=== PATIENT | female | born 1930 | race African-American/Black ===

== ENCOUNTER 2017-06-27 20:47 | Observation (INO) | payer OTHER ==
[2017-06-27] MEDS ORDERED: EPINEPHrine 1 MG/ML VIAL (21:05)
[2017-06-27] MEDS ORDERED: FAMOTIDINE 20 MG/2 ML VIAL ×2 (21:05→21:07)
[2017-06-27] MEDS ORDERED: diphenhydrAMINE 50 MG/ML VIAL (21:05)
[2017-06-27] MEDS ORDERED: methylPREDNISolone SOD SUCC PF 125 MG/2 ML VIAL. (21:05)
[2017-06-27 21:17] LABS: ADD MAN DIFF? NO
[2017-06-27] MEDS: methylPREDNISolone SOD SUCC PF 125 MG/2 ML VIAL. IV (21:17)
[2017-06-27] MEDS: diphenhydrAMINE 50 MG/ML VIAL IVP (21:17)
[2017-06-27] MEDS: FAMOTIDINE 20 MG/2 ML VIAL IVP (21:18)
[2017-06-27 21:21] LABS: BASO # 0.1 x10^3/uL (0.0-0.2); BASO % 1 % (0-3); EOS # 0.2 x10^3/uL (0.0-0.7); EOS % 2 % (0-3); HEMATOCRIT 39.3 % (36.0-47.0); HEMOGLOBIN 12.6 g/dL (12.0-15.5); LYMPH # 3.5 x10^3/uL (1.0-4.8); LYMPH % 51 % (24-48); MEAN CORPUSCULAR HEMOGLOBIN 27 pg (25-35); MEAN CORPUSCULAR HGB CONC 32 g/dL (31-37); MEAN CORPUSCULAR VOLUME 85 fL (79-100); MONO # 0.4 x10^3/uL (0.0-1.1); MONO % 6 % (0-9); NEUT # 2.8 x10^3uL (1.8-7.7); NEUT % 40 % (31-73); PLATELET COUNT 253 x10^3/uL (140-400); RED BLOOD COUNT 4.64 x10^6/uL (3.50-5.40); RED CELL DISTRIBUTION WIDTH 13.2 % (11.5-14.5); WHITE BLOOD COUNT 6.9 x10^3/uL (4.0-11.0)
[2017-06-27] MEDS: RACEPINEPHRINE 2.25% 0.5 ML NEBU. NEB (21:21)
[2017-06-27 21:30] LABS: ANION GAP 11 (6-14); BLOOD UREA NITROGEN 15 mg/dL (7-20); BUN/CREATININE RATIO 10 (6-20); CALCIUM 8.7 mg/dL (8.5-10.1); CARBON DIOXIDE 26 mmol/L (21-32); CHLORIDE 105 mmol/L (98-107); CREATININE 1.5 mg/dL (0.6-1.0); GLUCOSE 163 mg/dL (70-99); POTASSIUM 3.6 mmol/L (3.5-5.1); SODIUM 142 mmol/L (136-145)
[2017-06-27 21:34] LABS: ALBUMIN 3.1 g/dL (3.4-5.0); ALBUMIN/GLOBULIN RATIO 0.8 (1.0-1.7); ALK PHOS 72 U/L (46-116); ALT (SGPT) 19 U/L (14-59); AST (SGOT) 20 U/L (15-37); TOTAL BILIRUBIN 0.5 mg/dL (0.2-1.0); TOTAL PROTEIN 6.8 g/dL (6.4-8.2)
[2017-06-28] MEDS ORDERED: diphenhydrAMINE 50 MG/ML VIAL IVP (03:00)
[2017-06-28] MEDS ORDERED: ONDANSETRON PF 4 MG/2 ML VIAL. IV (03:00)
[2017-06-28] MEDS: IV NORMAL SALINE 1000ML BAG 1,000 ML IV (03:23)
[2017-06-28] MEDS: methylPREDNISolone SOD SUCC PF 125 MG/2 ML VIAL. IV ×2 (05:56→12:18)
[2017-06-28] MEDS: DONEPEZIL HCL 10 MG TABLET. PO (13:18)
[2017-06-28] MEDS: ASPIRIN 325 MG TABLET PO (13:18)
[2017-06-28] MEDS: MULTIVITAMIN with MINERAL TABLET. PO (13:18)
[2017-06-28] MEDS: CHOLECALCIFEROL (VITAMIN D3) 1,000 UNIT TABLET PO (13:18)
[2017-06-28] MEDS ORDERED: FAMOTIDINE 20 MG/2 ML VIAL IVP (21:00)
[2017-06-29 00:12] LABS: MRSA BY PCR Negative (Negative)
== END 2017-06-28 13:40 | disposition home or self-care (01) ==
LOC: 1 WEST ICU 06-28 00:13 → ER 20:47
DX: T78.3XXA Angioneurotic edema, initial encounter (principal); G31.84 Mild cognitive impairment of uncertain or unknown etiology; N17.9 Acute kidney failure, unspecified; E78.5 Hyperlipidemia, unspecified; M85.80 Other specified disorders of bone density and structure, unspecified site
CPT/HCPCS: 36415; 80053; 85025; 87641; 94640; 96361; 96374; 96375; 99285-25; G0378; G0379; J1200; J2930; J7030; S0028

== ENCOUNTER 2019-01-28 12:13 | Observation (INO) | payer OTHER ==
[~2019-01-28] VITALS: Ht 167.6 cm; Wt 68.0 kg
[~2019-01-28 12:13] MED LIST: ASPI-482 PO; ASPI325T8 PO; CHOL10002 PO; DONE10TA7 PO; MULT1TAB90 PO; PRED-299 PO
--- NOTE | 2019-01-28 12:52 | EKG ---
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
[2019-01-28 13:05] LABS: BILIRUBIN,URINE NEGATIVE (NEG); CLARITY,URINE CLEAR; COLOR,URINE YELLOW; NITRITE,URINE NEGATIVE (NEG); PH,URINE 6.5; PROTEIN,URINE NEGATIVE (NEG-TRACE); UROBILINOGEN,URINE 0.2 mg/dL (0.2 mg/dL)
--- NOTE | 2019-01-28 13:09 | RAD ---
EXAM: CHEST 1 VIEW History: Syncope COMPARISON: None available. TECHNIQUE: Single portable radiograph of the chest FINDINGS: The cardiac silhouette is unremarkable. The lungs are clear bilaterally. The costophrenic sulci are clear and well demarcated. IMPRESSION: No radiographic evidence of an acute cardiopulmonary process. Electronically signed by: Zane Washington MD (01/28/2019 1:06 PM) [place] [id number]
[2019-01-28 13:26] LABS: BASO # 0.1 x10^3/uL (0.0-0.2); BASO % 1 % (0-3); EOS # 0.1 x10^3/uL (0.0-0.7); EOS % 2 % (0-3); HEMOGLOBIN 11.8 g/dL (12.0-15.5); LYMPH # 2.5 x10^3/uL (1.0-4.8); LYMPH % 28 % (24-48); MEAN CORPUSCULAR HEMOGLOBIN 27 pg (25-35); MEAN CORPUSCULAR HGB CONC 33 g/dL (31-37); MEAN CORPUSCULAR VOLUME 84 fL (79-100); MONO % 11 % (0-9); NEUT # 5.2 x10^3/uL (1.8-7.7); NEUT % 59 % (31-73); PLATELET COUNT 264 x10^3/uL (140-400); RED CELL DISTRIBUTION WIDTH 13.1 % (11.5-14.5); WHITE BLOOD COUNT 8.8 x10^3/uL (4.0-11.0)
[2019-01-28 13:33] LABS: CALCIUM 9.7 mg/dL (8.5-10.1); CREATININE 1.1 mg/dL (0.6-1.0); POTASSIUM 4.3 mmol/L (3.5-5.1)
[2019-01-28 13:33] LABS: BACTERIA,URINE 0 /HPF (0-FEW); RBC,URINE 0 /HPF (0-2); SQUAMOUS EPITHELIAL CELL,UR FEW /LPF
[2019-01-28 13:39] LABS: ALBUMIN 3.3 g/dL (3.4-5.0); ALBUMIN/GLOBULIN RATIO 0.8 (1.0-1.7); TOTAL BILIRUBIN 0.7 mg/dL (0.2-1.0); TOTAL PROTEIN 7.4 g/dL (6.4-8.2)
--- NOTE | 2019-01-28 13:53 | RAD ---
PQRS Compliance Statement: One or more of the following individualized dose reduction techniques were utilized for this examination: 1. Automated exposure control 2. Adjustment of the mA and/or kV according to patient size 3. Use of iterative reconstruction technique CT HEAD WITHOUT CONTRAST History: Syncope. Comparison: None. Technique: Axial images are obtained of the head from the skull base through the vertex without IV contrast. Findings: No mass-effect, midline shift, extra-axial fluid collection, hemorrhage, or obvious acute infarction is identified. Basilar cisterns are patent. The ventricles and sulci are prominent, consistent with age-related cerebral atrophy. Incidental cavum. There is mild supratentorial white matter hypoattenuation. This is a nonspecific finding but is commonly due to chronic small vessel ischemic disease. Bone windows demonstrate no acute calvarial abnormality. Moderate mucosal thickening bilateral maxillary and ethmoid sinuses. The maxillary sinuses are incompletely imaged. Mastoid air cells are well aerated. IMPRESSION: 1. No acute intracranial abnormality. 2. Generalized cerebral atrophy and mild supratentorial white matter changes probably due to chronic small vessel ischemic disease. Electronically signed by: Holden Mejia MD (01/28/2019 1:51 PM) [id number]
--- NOTE | 2019-01-28 14:51 | PHYS DOC ---
Past Medical History Past Medical History: No Pertinent History Past Surgical History: No Surgical History Alcohol Use: None Drug Use: None Adult General Chief Complaint Chief Complaint: SYNCOPE [facility] HPI Patient is a 88 year old female who presents with complaining of syncope. Patient states she finished her exercise class with her daughter at the gym and did not have any chest pain or focal neuro deficit. Patient states she does not remember what happened today but mother states she had this done 1 minute syncope with loss of consciousness without seizure activity or postictal condition. Patient states she feels fine and doesn't complaining of any problem at this time. Patient did not have history of syncope or other medical problem. Review of Systems Review of Systems Constitutional: Denies fever or chills [] Eyes: Denies change in visual acuity, redness, or eye pain [] HENT: Denies nasal congestion or sore throat [] Respiratory: Denies cough or shortness of breath [] Cardiovascular: No additional information not addressed in HPI [] GI: Denies abdominal pain, nausea, vomiting, bloody stools or diarrhea [] : Denies dysuria or hematuria [] Musculoskeletal: Denies back pain or joint pain [] Integument: Denies rash or skin lesions [] Neurologic: Denies headache, focal weakness or sensory changes [] Endocrine: Denies polyuria or polydipsia [] All other systems were reviewed and found to be within normal limits, except as documented in this note. Current Medications Current Medications Allergies Allergies Allergies Coded Allergies Type Severity Reaction Last Updated Verified No Known Drug Allergies 06/27/17 No Physical Exam Physical Exam Constitutional: Well developed, well nourished, no acute distress, non-toxic appearance. [] HENT: Normocephalic, atraumatic, bilateral external ears normal, oropharynx moist, no oral exudates, nose normal. [] Eyes: PERRLA, EOMI, conjunctiva normal, no discharge. [] Neck: Normal range of motion, no tenderness, supple, no stridor. [] Cardiovascular:Heart rate regular rhythm, no murmur [] Lungs & Thorax: Bilateral breath sounds clear to auscultation [] Abdomen: Bowel sounds normal, soft, no tenderness, no masses, no pulsatile masses. [] Skin: Warm, dry, no erythema, no rash. [] Back: No tenderness, no CVA tenderness. [] Extremities: No tenderness, no cyanosis, no clubbing, ROM intact, no edema. [] Neurologic: Alert and oriented X 3, normal motor function, normal sensory function, no focal deficits noted, , NIHS Of 0. [] Psychologic: Affect normal, judgement normal, mood normal. [] Current Patient Data Vital Signs Vital Signs Date Time Temp Pulse Resp B/P (MAP) Pulse Ox O2 Delivery O2 Flow Rate FiO2 01/28/19 14:12 66 18 120/70 (87) 95 Room Air 01/28/19 12:41 98.3 98.3 Lab Values Laboratory Tests Test 01/28/19 13:00 01/28/19 13:09 Urine Collection Type Unknown Urine Color Yellow Urine Clarity Clear Urine pH 6.5 Urine Specific [place] 1.010 Urine Protein Negative mg/dL (NEG-TRACE) Urine Glucose (UA) Negative mg/dL (NEG) Urine Ketones (Stick) Negative mg/dL (NEG) Urine Blood Negative (NEG) Urine Nitrite Negative (NEG) Urine Bilirubin Negative (NEG) Urine Urobilinogen Dipstick 0.2 mg/dL (0.2 mg/dL) Urine Leukocyte Esterase Trace (NEG) Urine RBC 0 /HPF (0-2) Urine WBC 5-10 /HPF (0-4) Urine Squamous Epithelial Cells Few /LPF Urine Bacteria 0 /HPF (0-FEW) White Blood Count 8.8 x10^3/uL (4.0-11.0) Red Blood Count 4.30 x10^6/uL (3.50-5.40) Hemoglobin 11.8 g/dL (12.0-15.5) L Hematocrit 36.0 % (36.0-47.0) Mean Corpuscular Volume 84 fL (79-100) Mean Corpuscular Hemoglobin 27 pg (25-35) Mean Corpuscular Hemoglobin Concent 33 g/dL (31-37) Red Cell Distribution Width 13.1 % (11.5-14.5) Platelet Count 264 x10^3/uL (140-400) Neutrophils (%) (Auto) 59 % (31-73) Lymphocytes (%) (Auto) 28 % (24-48) Monocytes (%) (Auto) 11 % (0-9) H Eosinophils (%) (Auto) 2 % (0-3) Basophils (%) (Auto) 1 % (0-3) Neutrophils # (Auto) 5.2 x10^3/uL (1.8-7.7) Lymphocytes # (Auto) 2.5 x10^3/uL (1.0-4.8) Monocytes # (Auto) 1.0 x10^3/uL (0.0-1.1) Eosinophils # (Auto) 0.1 x10^3/uL (0.0-0.7) Basophils # (Auto) 0.1 x10^3/uL (0.0-0.2) Sodium Level 139 mmol/L (136-145) Potassium Level 4.3 mmol/L (3.5-5.1) Chloride Level 105 mmol/L (98-107) Carbon Dioxide Level 29 mmol/L (21-32) Anion Gap 5 (6-14) L Blood Urea Nitrogen 17 mg/dL (7-20) Creatinine 1.1 mg/dL (0.6-1.0) H Estimated GFR (Cockcroft-Gault) 57.0 BUN/Creatinine Ratio 15 (6-20) Glucose Level 112 mg/dL (70-99) H Calcium Level 9.7 mg/dL (8.5-10.1) Magnesium Level 2.0 mg/dL (1.8-2.4) Total Bilirubin 0.7 mg/dL (0.2-1.0) Aspartate Amino Transferase (AST) 17 U/L (15-37) Alanine Aminotransferase (ALT) 15 U/L (14-59) Alkaline Phosphatase 90 U/L (46-116) Creatine Kinase 66 U/L (26-192) Troponin I Quantitative < 0.017 ng/mL (0.000-0.055) Total Protein 7.4 g/dL (6.4-8.2) Albumin 3.3 g/dL (3.4-5.0) L Albumin/Globulin Ratio 0.8 (1.0-1.7) L Laboratory Tests 01/28/19 13:09 Laboratory Tests 01/28/19 13:09 EKG EKG EKG interpreted by me. EKG at 1242 showed sinus bradycardia at rate of 58, left atrial abnormality, abnormal right superior axis deviation, poor R-wave progress in anteroseptal leads, no acute ST and T-wave abnormalities. Radiology/Procedures Radiology/Procedures [][facility] [address] [place] [address] IMAGING REPORT Signed PATIENT: EDMOND STONE ACCOUNT: [id number] : 1930 LOCATION: ER AGE: 88 SEX: F EXAM STATUS: REG ER ORD. PHYSICIAN: SUZIE MUÑIZ MD REASON: syncope PROCEDURE: PORTABLE CHEST 1V EXAM: CHEST 1 VIEW History: Syncope COMPARISON: None available. TECHNIQUE: Single portable radiograph of the chest FINDINGS: The cardiac silhouette is unremarkable. The lungs are clear bilaterally. The costophrenic sulci are clear and well demarcated. IMPRESSION: No radiographic evidence of an acute cardiopulmonary process. Electronically signed by: Zane Washington MD (01/28/2019 1:06 PM) [facility] DICTATED and SIGNED BY: ZANE WASHINGTON MD DATE: 01/28/19 1306 [facility] [address] [place] [address] IMAGING REPORT Signed PATIENT: EDMOND STONE ACCOUNT: [id number] : 1930 LOCATION: ER AGE: 88 SEX: F EXAM STATUS: REG ER ORD. PHYSICIAN: SUZIE MUÑIZ MD REASON: syncope PROCEDURE: CT HEAD WO CONTRAST PQRS Compliance Statement: One or more of the following individualized dose reduction techniques were utilized for this examination: 1. Automated exposure control 2. Adjustment of the mA and/or kV according to patient size 3. Use of iterative reconstruction technique CT HEAD WITHOUT CONTRAST History: Syncope. Comparison: None. Technique: Axial images are obtained of the head from the skull base through the vertex without IV contrast. Findings: No mass-effect, midline shift, extra-axial fluid collection, hemorrhage, or obvious acute infarction is identified. Basilar cisterns are patent. The ventricles and sulci are prominent, consistent with age-related cerebral atrophy. Incidental cavum. There is mild supratentorial white matter hypoattenuation. This is a nonspecific finding but is commonly due to chronic small vessel ischemic disease. Bone windows demonstrate no acute calvarial abnormality. Moderate mucosal thickening bilateral maxillary and ethmoid sinuses. The maxillary sinuses are incompletely imaged. Mastoid air cells are well aerated. IMPRESSION: 1. No acute intracranial abnormality. 2. Generalized cerebral atrophy and mild supratentorial white matter changes probably due to chronic small vessel ischemic disease. Electronically signed by: Holden Mejia MD (01/28/2019 1:51 PM) [id number] DICTATED and SIGNED BY: HOLDEN MEJIA MD DATE: 01/28/19 1351 Course & Med Decision Making Course & Med Decision Making Pertinent Labs and Imaging studies reviewed. (See chart for details) Evaluation of patient in ER showed 88-year-old female patient without medical problems presented to ER with one episode of syncope. Patient had patient stand. Patient treated with IV fluid. Labs was unremarkable.Patient requiring admission for further evaluation and treatment. Discussed with Dr. Castaneda who is in agreement with admission. Discussed findings and plan with patient and family, who acknowledge understanding and agreement. Dragon Disclaimer Dragon Disclaimer This electronic medical record was generated, in whole or in part, using a voice recognition dictation system. Departure Departure Impression: Primary Impression: Syncope Additional Impressions: Orthostatic hypotension Anemia Disposition: ADMITTED INPATIENT (at 1505) Admitting Physician: Sanjay Castaneda (accepted admission at 1504) Condition: IMPROVED Referrals: SANJAY CASTANEDA MD (PCP) Problem Qualifiers Primary Impression: Syncope Syncope type: unspecified Qualified Codes: R55 - Syncope and collapse Additional Impressions: Anemia Anemia type: unspecified type Qualified Codes: D64.9 - Anemia, unspecified SUZIE MUÑIZ MD Jan 28, 2019 14:51
[2019-01-28] MEDS ORDERED: IV NORMAL SALINE 500ML BAG 500 ML IV ONE (15:15)
[2019-01-28] MEDS ORDERED: ACETAMINOPHEN 325 MG TABLET. PO PRN (16:00)
--- NOTE | 2019-01-28 16:13 | PDOC ---
Provider Note Provider Note history and physical dictated # [id number] MUNA CASTANEDA MD Jan 28, 2019 16:13
--- NOTE | 2019-01-28 16:36 | HP ---
ADMIT DATE: 01/28/2019 HISTORY OF PRESENT ILLNESS: The patient is an 88-year-old -[place] female who has a history of dementia, osteopenia, who exercises 3 days a week and while she was standing up and jumping in place, she sat down and had a syncopal episode for about 30 seconds or so. She denied any chest pain, shortness of breath or palpitations prior to the syncopal episode and denies any vomiting or diarrhea. She went to the Emergency Room at [facility]. BUN 17, creatinine 1.1, hemoglobin 11.8, but she was noted to have orthostasis and received some IV normal saline. She feels fine, lying in bed and denies any chest pain or shortness of breath. Subsequently, admitted to the hospital for further evaluation of her syncope. It should be noted and I was evaluating she had some sinus bradycardia in the 50s. She does take Aricept 10 mg every day for hypertension and dementia. ALLERGIES AND INTOLERANCES: None. MEDICATIONS PRIOR TO ADMISSION: Aspirin 81 mg every day, Aricept 10 mg every day, Namenda 10 mg every day, multiple vitamin every day, calcium 500 mg every day, vitamin D 1000 units every day. PAST MEDICAL HISTORY: Significant for dementia and osteopenia. She also has a history of a colonoscopy with polypectomy in 2012. She has had internal hemorrhoids at that time also. SOCIAL HISTORY: She does not drink alcohol nor she smoke cigarettes. Ambulates, I believe about a walker. FAMILY HISTORY: Noncontributory. REVIEW OF SYSTEMS: GENERAL: There has been no fever, chills or sweats in the last 3 days. CARDIOVASCULAR: No chest pain. PULMONARY: No cough or shortness of breath. GASTROINTESTINAL: No constipation. ENDOCRINE: No diabetes mellitus. SKIN: No rashes. Rest of systems reviewed are negative except as stated in the history of present illness. PHYSICAL EXAMINATION: VITAL SIGNS: Her temperature is 98.3 degrees, pulse is actually about 56-62 and it was in the exam room in sinus rhythm, respiratory rate 18, blood pressure 120/70, oxygen saturation 95% on room air. HEENT: Eyes; gaze is conjugate. Extraocular muscles are intact. Mouth; tongue is midline. NECK: There is no cervical lymphadenopathy or thyroid enlargement. HEART: Reveals an S1, S2. There is no S3 or murmur. LUNGS: Reveal few scattered rhonchi on inspiration and a little bit and expiration. She denies any cough. ABDOMEN: Soft with no hepatosplenomegaly, masses or tenderness. EXTREMITIES: Lower extremities without edema. SKIN: No rashes. Dorsalis pedis pulses are 2+ bilaterally. NEUROLOGIC: She is coherent, has no focal weakness in arms or legs. LABORATORY DATA: Review of her laboratory tests revealed white count is 8.8, hemoglobin 11.8, platelet count 264,000, 59 polys and 28 lymphocytes. Sodium 139, potassium 4.3, chloride 105, total CO2 of 29, BUN 17, creatinine 1.1, blood sugar 112. Liver function tests normal. Troponin level less than 0.017. Albumin 3.3. Urinalysis showed 5-10 white cells and no red blood cells. She had a CAT scan of the head done and it showed no acute abnormality with generalized cerebral atrophy. She also had a chest x-ray done, which showed no acute abnormality. She did have an EKG done. The leads are wrong all over the place and EKG needs to be repeated. AVR is positive and lead I is negative. ASSESSMENT: 1. Syncopal episode. This could be secondary to orthostatic hypotension, perhaps some decreased fluid intake. Her BUN is a little bit higher than creatinine. She did receive IV normal saline, bolus in the Emergency Room. 2. Dementia. 3. Osteopenia. PLAN: To consult Dr. Monteiro for Cardiology. We will get an echocardiogram. Repeat a CBC and BMP tomorrow. Check for orthostatic blood pressures and discontinue the Aricept, which can cause sinus bradycardia, but we will continue with Namenda. Discussed with the family, who concurs with the plan and we will also put her on telemetry and SCDs for deep vein thrombosis prophylaxis. MUNA CASTANEDA MD DR: JOSE CARLOS/nino JOB#: [id number] / [id number]
[2019-01-28 17:40] VITALS: BP 117/49
[2019-01-28 19:38] VITALS: BP 134/65
[2019-01-28 23:49] VITALS: BP 142/65
[2019-01-29 03:43] VITALS: BP 165/60
[2019-01-29 07:00] VITALS: BP 124/72
[2019-01-29 07:22] LABS: BASO # 0.1 x10^3/uL (0.0-0.2); BASO % 1 % (0-3); EOS # 0.2 x10^3/uL (0.0-0.7); EOS % 3 % (0-3); HEMATOCRIT 34.5 % (36.0-47.0); HEMOGLOBIN 11.3 g/dL (12.0-15.5); LYMPH # 2.8 x10^3/uL (1.0-4.8); LYMPH % 40 % (24-48); MEAN CORPUSCULAR HEMOGLOBIN 27 pg (25-35); MEAN CORPUSCULAR HGB CONC 33 g/dL (31-37); MEAN CORPUSCULAR VOLUME 83 fL (79-100); MONO # 0.8 x10^3/uL (0.0-1.1); MONO % 12 % (0-9); NEUT # 3.1 x10^3/uL (1.8-7.7); NEUT % 45 % (31-73); PLATELET COUNT 241 x10^3/uL (140-400); RED BLOOD COUNT 4.15 x10^6/uL (3.50-5.40); RED CELL DISTRIBUTION WIDTH 12.8 % (11.5-14.5)
[2019-01-29 07:41] LABS: CALCIUM 9.2 mg/dL (8.5-10.1); GFR 63.6; POTASSIUM 4.1 mmol/L (3.5-5.1)
--- NOTE | 2019-01-29 08:29 | PDOC2 ---
ROBERTA BRITTON WAITSTAFF 01/29/19 0829: CARDIAC CONSULT DATE OF CONSULT Date of Consult DATE: 01/29/19 TIME: 08:27 REASON FOR CONSULT Reason for Consult: syncope REFERRING PHYSICIAN Referring Physician: Peggy SOURCE Source: Chart review, Patient HISTORY OF PRESENT ILLNESS HISTORY OF PRESENT ILLNESS This is a pleasant 88 yo female admitted for complains of passing out. Reports that she exercise at the gym 3x a week. She was starting her work out routine yesterday. She felt dizzy and and sat down and passed out but no falls. She was out <1min. This happened as well 1.5 weeks ago. No CP, SOA, palpitations. No hx of syncope till in the last 2 weeks. Denies any CAD, CVA, or any arrhythmias. PAST MEDICAL HISTORY Cardiovascular: HTN, Hyperlipidemia Pulmonary: No pertinent hx CENTRAL NERVOUS SYSTEM: Dementia GI: Other (colon polyp) Heme/Onc: No pertinent hx Hepatobiliary: No pertinent hx Psych: No pertinent hx Musculoskeletal: Osteoarthritis Rheumatologic: No pertinent hx Infectious disease: No pertinent hx ENT: No pertinent hx Renal/: No pertinent hx Endocrine: Osteopenia Dermatology: No pertinent hx PAST SURGICAL HISTORY Past Surgical History: Other (colon polypectomy) FAMILY HISTORY Family History noncontributory to age CURRENT MEDICATIONS CURRENT MEDICATIONS Current Medications Medications (Trade) Dose Ordered Sig/Taniya Route PRN Reason Start Time Stop Time Status Last Admin Dose Admin Sodium Chloride 500 ml @ 500 mls/hr 1X ONCE IV 01/28/19 15:15 01/28/19 16:14 DC 01/28/19 15:25 ALLERGIES ALLERGIES: Coded Allergies: No Known Drug Allergies (Unverified , 06/27/17) ROS Review of System 14 point ROS evaluated with pertinent positives noted per HPI PHYSICAL EXAM General: Alert, Oriented X3, Cooperative, No acute distress HEENT: Atraumatic, Mucous membr. moist/pink Lungs: Clear to auscultation, Normal air movement Heart: Regular rate (SR), Normal S1, Normal S2, No murmurs Abdomen: Soft, No tenderness Extremities: No cyanosis, No edema Skin: No breakdown, No significant lesion Neuro: Normal speech, Sensation intact Psych/Mental Status: Mental status NL, Mood NL MUSCULOSKELETAL: Osteoarthritic changes both hands VITALS/I&O VITALS/I&O: Vital Signs Date Time Temp Pulse Resp B/P (MAP) Pulse Ox O2 Delivery O2 Flow Rate FiO2 01/29/19 03:43 98.8 69 18 165/60 (95) 97 Room Air 98.8 I & O 01/28/19 01/28/19 01/29/19 15:00 23:00 07:00 Intake Total 500 ml 600 ml Balance 500 ml 600 ml LABS Lab: Laboratory Tests Test 01/28/19 13:00 01/28/19 13:09 01/29/19 06:10 Urine Collection Type Unknown Urine Color Yellow Urine Clarity Clear Urine pH 6.5 Urine Specific [place] 1.010 Urine Protein Negative mg/dL (NEG-TRACE) Urine Glucose (UA) Negative mg/dL (NEG) Urine Ketones (Stick) Negative mg/dL (NEG) Urine Blood Negative (NEG) Urine Nitrite Negative (NEG) Urine Bilirubin Negative (NEG) Urine Urobilinogen Dipstick 0.2 mg/dL (0.2 mg/dL) Urine Leukocyte Esterase Trace (NEG) Urine RBC 0 /HPF (0-2) Urine WBC 5-10 /HPF (0-4) Urine Squamous Epithelial Cells Few /LPF Urine Bacteria 0 /HPF (0-FEW) White Blood Count 8.8 x10^3/uL (4.0-11.0) 7.0 x10^3/uL (4.0-11.0) Red Blood Count 4.30 x10^6/uL (3.50-5.40) 4.15 x10^6/uL (3.50-5.40) Hemoglobin 11.8 g/dL (12.0-15.5) L 11.3 g/dL (12.0-15.5) L Hematocrit 36.0 % (36.0-47.0) 34.5 % (36.0-47.0) L Mean Corpuscular Volume 84 fL (79-100) 83 fL (79-100) Mean Corpuscular Hemoglobin 27 pg (25-35) 27 pg (25-35) Mean Corpuscular Hemoglobin Concent 33 g/dL (31-37) 33 g/dL (31-37) Red Cell Distribution Width 13.1 % (11.5-14.5) 12.8 % (11.5-14.5) Platelet Count 264 x10^3/uL (140-400) 241 x10^3/uL (140-400) Neutrophils (%) (Auto) 59 % (31-73) 45 % (31-73) Lymphocytes (%) (Auto) 28 % (24-48) 40 % (24-48) Monocytes (%) (Auto) 11 % (0-9) H 12 % (0-9) H Eosinophils (%) (Auto) 2 % (0-3) 3 % (0-3) Basophils (%) (Auto) 1 % (0-3) 1 % (0-3) Neutrophils # (Auto) 5.2 x10^3/uL (1.8-7.7) 3.1 x10^3/uL (1.8-7.7) Lymphocytes # (Auto) 2.5 x10^3/uL (1.0-4.8) 2.8 x10^3/uL (1.0-4.8) Monocytes # (Auto) 1.0 x10^3/uL (0.0-1.1) 0.8 x10^3/uL (0.0-1.1) Eosinophils # (Auto) 0.1 x10^3/uL (0.0-0.7) 0.2 x10^3/uL (0.0-0.7) Basophils # (Auto) 0.1 x10^3/uL (0.0-0.2) 0.1 x10^3/uL (0.0-0.2) Sodium Level 139 mmol/L (136-145) 146 mmol/L (136-145) H Potassium Level 4.3 mmol/L (3.5-5.1) 4.1 mmol/L (3.5-5.1) Chloride Level 105 mmol/L (98-107) 110 mmol/L (98-107) H Carbon Dioxide Level 29 mmol/L (21-32) 30 mmol/L (21-32) Anion Gap 5 (6-14) L 6 (6-14) Blood Urea Nitrogen 17 mg/dL (7-20) 17 mg/dL (7-20) Creatinine 1.1 mg/dL (0.6-1.0) H 1.0 mg/dL (0.6-1.0) Estimated GFR (Cockcroft-Gault) 57.0 63.6 BUN/Creatinine Ratio 15 (6-20) Glucose Level 112 mg/dL (70-99) H 86 mg/dL (70-99) Calcium Level 9.7 mg/dL (8.5-10.1) 9.2 mg/dL (8.5-10.1) Magnesium Level 2.0 mg/dL (1.8-2.4) Total Bilirubin 0.7 mg/dL (0.2-1.0) Aspartate Amino Transferase (AST) 17 U/L (15-37) Alanine Aminotransferase (ALT) 15 U/L (14-59) Alkaline Phosphatase 90 U/L (46-116) Creatine Kinase 66 U/L (26-192) Troponin I Quantitative < 0.017 ng/mL (0.000-0.055) Total Protein 7.4 g/dL (6.4-8.2) Albumin 3.3 g/dL (3.4-5.0) L Albumin/Globulin Ratio 0.8 (1.0-1.7) L Laboratory Tests 01/28/19 13:09 01/29/19 06:10 Laboratory Tests 01/28/19 13:09 01/29/19 06:10 ASSESSMENT/PLAN ASSESSMENT/PLAN 1. Bradyarrhythmia: Brief episodes of mobitz type 2. Negative for CSH and orthostasis 2. Syncope: due to above. 3. Dementia Recommendations 1. Aricept could be contributing with her last dose Wed at 10 mg daily. Given that this is her second episode of syncope she may ultimately have an underlying conductive issue more pronounce with aricept use. May benefit from PPM and could be done as an outpt next week. Will discuss case with primary bank accountant. 2. Avoid any AV miriam blocking agents. No driving at this point and discuss with daughters. FE ROCHA MD 01/29/19 1711: CARDIAC CONSULT ASSESSMENT/PLAN ASSESSMENT/PLAN Patient seen and examined. 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 I discussed the risks, benefits and alternatives to pacemaker implantation. She we'll refrain from driving. We will plan for pacemaker next week. Okay to discharge from a cardiac standpoint. ROBERTA BRITTON APRN Jan 29, 2019 08:29 FE ROCHA MD Jan 29, 2019 17:11
[2019-01-29] MEDS ORDERED: CALCIUM CARBONATE 500 MG TABLET PO SCH (09:00)
[2019-01-29] MEDS ORDERED: CHOLECALCIFEROL (VITAMIN D3) 1,000 UNIT TABLET PO SCH (09:00)
[2019-01-29] MEDS ORDERED: MEMANTINE 10 MG TABLET. PO SCH (09:00)
[2019-01-29] MEDS ORDERED: ASPIRIN CHEWABLE 81 MG TABLET. PO SCH (09:00)
--- NOTE | 2019-01-29 09:23 | CARD ---
MR#: [id number] Date of Study: 01/29/2019 Ordering Physician: MUNA CASTANEDA, Referring Physician: MUNA CASTANEDA, Tech: Maritza Anderson CHATO APPROVED REPORT EXAM: Two-dimensional and M-mode echocardiogram with Doppler and color Doppler. Other Information Quality : AverageHR: 55bpm Rhythm : Bradycardia INDICATION Syncope 2D DIMENSIONS RVDd3.0 (2.9-3.5cm)Left Atrium(2D)2.9 (1.6-4.0cm) IVSd0.9 (0.7-1.1cm)Aortic Root(2D)2.6 (2.0-3.7cm) LVDd4.3 (3.9-5.9cm)LVOT Diameter2.0 (1.8-2.4cm) PWd1.0 (0.7-1.1cm)LVDs2.9 (2.5-4.0cm) FS (%) 32.6 %SV51.7 ml LVEF(%)60.0 (>50%) M-Mode DIMENSIONS Left Atrium(MM)2.67 (2.5-4.0cm)Aortic Root2.52 (2.2-3.7cm) Aortic Valve AoV Peak Cam[place].143.2cm/sAoV VTI25.6cm AO Peak GR.8.2mmHgLVOT Peak [place].112.6cm/s AO Mean GR.4mmHgAVA (VMAX)2.36cm2 MALLORY (VTI)2.40cm2 Mitral Valve MV E Rtsoifeh20.2cm/sMV DECEL CPCE411lm MV A Kgwqbarq39.3cm/sE/A Ratio0.9 Pulmonary Valve PV Peak Csqydzmy94.4cm/s Tricuspid Valve TR P. Gqqznmfe120po/sRAP NQXZLDLH8zlZq TR Peak Gr.54vyIiBXBY90soKt LEFT VENTRICLE The left ventricle is normal size. There is normal left ventricular wall thickness. The left ventricu lar systolic function is normal. The Ejection Fraction is 55-60%. There is normal LV segmental wall m otion. Transmitral Doppler flow pattern is Grade I-abnormal relaxation pattern. RIGHT VENTRICLE The right ventricle is normal size. There is normal right ventricular wall thickness. The right ventr icular systolic function is normal. ATRIA The left atrium size is normal. The right atrium size is normal. The interatrial septum is intact wit h no evidence for an atrial septal defect or patent foramen ovale as noted on 2-D or Doppler imaging. AORTIC VALVE The aortic valve is mildly thickened but opens well. The aortic valve is trileaflet. Doppler and Delmar r Flow revealed trace aortic regurgitation. There is no significant aortic valvular stenosis. There i s no aortic valvular vegetation. MITRAL VALVE The mitral valve is normal in structure and function. There is no evidence of mitral valve prolapse. There is no mitral valve stenosis. Doppler and Color Flow revealed no mitral valve regurgitation note d. TRICUSPID VALVE The tricuspid valve is normal in structure and function. Doppler and Color Flow revealed trace tricus pid regurgitation. The PA pressure was estimated at 38 mmHg. There is no tricuspid valve prolapse or vegetation. There is no tricuspid valve stenosis. PULMONIC VALVE The pulmonic valve is not well visualized. GREAT VESSELS The aortic root is normal in size. The ascending aorta is normal in size. The IVC is normal in size a nd collapses >50% with inspiration. PERICARDIAL EFFUSION There is no evidence of significant pericardial effusion. Critical Notification Critical Value: No <Conclusion> The left ventricular systolic function is normal. The Ejection Fraction is 55-60%. There is normal LV segmental wall motion. Transmitral Doppler flow pattern is Grade I-abnormal relaxation pattern. Trace tricuspid regurgitation. The PA pressure was estimated at 38 mmHg. There is no evidence of significant pericardial effusion. Signed by : Jake Monteiro, Electronically Approved : 01/29/2019 09:22:52
--- NOTE | 2019-01-29 10:08 | PDOC ---
PROGRESS NOTES Subjective Subjective echo shows a preserved LVEF and grade 1 LV diastolic dysfunction. labs okay. ambulates without dizziness. feels well Objective Objective Vital Signs Date Time Temp Pulse Resp B/P (MAP) Pulse Ox O2 Delivery O2 Flow Rate FiO2 01/29/19 07:00 97.5 65 17 124/72 (89) 100 Room Air 97.5 Intake and Output 01/29/19 06:59 Intake Total 1100 ml Balance 1100 ml Intake Oral 600 ml IV Total 500 ml # Voids 1 Physical Exam Abdomen: Soft Heart: Regular rate, Normal S1, Normal S2 Extremities: No edema General: Alert HEENT: Atraumatic Lungs: Clear to auscultation Neuro: Normal speech Psych/Mental Status: Mental status NL Skin: No rashes Assessment Assessment Problems1. Syncopal episode due to orthostatic hypotension 2. Dementia. 3. Osteopenia. Medical Problems: (1) Anemia Status: Acute (2) Dementia Status: Chronic (3) Orthostatic hypotension Status: Acute (4) Osteopenia Status: Chronic (5) Syncope Status: Acute Plan Plan of Care push fluids dismiss today if okay with cardiology Comment Review of Relevant I have reviewed the following items jose (where applicable) has been applied. Labs Laboratory Tests Test 01/28/19 13:00 01/28/19 13:09 01/29/19 06:10 Urine Collection Type Unknown Urine Color Yellow Urine Clarity Clear Urine pH 6.5 Urine Specific Shirley 1.010 Urine Protein Negative mg/dL (NEG-TRACE) Urine Glucose (UA) Negative mg/dL (NEG) Urine Ketones (Stick) Negative mg/dL (NEG) Urine Blood Negative (NEG) Urine Nitrite Negative (NEG) Urine Bilirubin Negative (NEG) Urine Urobilinogen Dipstick 0.2 mg/dL (0.2 mg/dL) Urine Leukocyte Esterase Trace (NEG) Urine RBC 0 /HPF (0-2) Urine WBC 5-10 /HPF (0-4) Urine Squamous Epithelial Cells Few /LPF Urine Bacteria 0 /HPF (0-FEW) White Blood Count 8.8 x10^3/uL (4.0-11.0) 7.0 x10^3/uL (4.0-11.0) Red Blood Count 4.30 x10^6/uL (3.50-5.40) 4.15 x10^6/uL (3.50-5.40) Hemoglobin 11.8 g/dL (12.0-15.5) 11.3 g/dL (12.0-15.5) Hematocrit 36.0 % (36.0-47.0) 34.5 % (36.0-47.0) Mean Corpuscular Volume 84 fL (79-100) 83 fL (79-100) Mean Corpuscular Hemoglobin 27 pg (25-35) 27 pg (25-35) Mean Corpuscular Hemoglobin Concent 33 g/dL (31-37) 33 g/dL (31-37) Red Cell Distribution Width 13.1 % (11.5-14.5) 12.8 % (11.5-14.5) Platelet Count 264 x10^3/uL (140-400) 241 x10^3/uL (140-400) Neutrophils (%) (Auto) 59 % (31-73) 45 % (31-73) Lymphocytes (%) (Auto) 28 % (24-48) 40 % (24-48) Monocytes (%) (Auto) 11 % (0-9) 12 % (0-9) Eosinophils (%) (Auto) 2 % (0-3) 3 % (0-3) Basophils (%) (Auto) 1 % (0-3) 1 % (0-3) Neutrophils # (Auto) 5.2 x10^3/uL (1.8-7.7) 3.1 x10^3/uL (1.8-7.7) Lymphocytes # (Auto) 2.5 x10^3/uL (1.0-4.8) 2.8 x10^3/uL (1.0-4.8) Monocytes # (Auto) 1.0 x10^3/uL (0.0-1.1) 0.8 x10^3/uL (0.0-1.1) Eosinophils # (Auto) 0.1 x10^3/uL (0.0-0.7) 0.2 x10^3/uL (0.0-0.7) Basophils # (Auto) 0.1 x10^3/uL (0.0-0.2) 0.1 x10^3/uL (0.0-0.2) Sodium Level 139 mmol/L (136-145) 146 mmol/L (136-145) Potassium Level 4.3 mmol/L (3.5-5.1) 4.1 mmol/L (3.5-5.1) Chloride Level 105 mmol/L (98-107) 110 mmol/L (98-107) Carbon Dioxide Level 29 mmol/L (21-32) 30 mmol/L (21-32) Anion Gap 5 (6-14) 6 (6-14) Blood Urea Nitrogen 17 mg/dL (7-20) 17 mg/dL (7-20) Creatinine 1.1 mg/dL (0.6-1.0) 1.0 mg/dL (0.6-1.0) Estimated GFR (Cockcroft-Gault) 57.0 63.6 BUN/Creatinine Ratio 15 (6-20) Glucose Level 112 mg/dL (70-99) 86 mg/dL (70-99) Calcium Level 9.7 mg/dL (8.5-10.1) 9.2 mg/dL (8.5-10.1) Magnesium Level 2.0 mg/dL (1.8-2.4) Total Bilirubin 0.7 mg/dL (0.2-1.0) Aspartate Amino Transf (AST/SGOT) 17 U/L (15-37) Alanine Aminotransferase (ALT/SGPT) 15 U/L (14-59) Alkaline Phosphatase 90 U/L (46-116) Creatine Kinase 66 U/L (26-192) Troponin I Quantitative < 0.017 ng/mL (0.000-0.055) Total Protein 7.4 g/dL (6.4-8.2) Albumin 3.3 g/dL (3.4-5.0) Albumin/Globulin Ratio 0.8 (1.0-1.7) Thyroid Stimulating Hormone (TSH) 2.176 uIU/mL (0.358-3.74) Laboratory Tests Test 01/28/19 13:00 01/28/19 13:09 01/29/19 06:10 Urine Collection Type Unknown Urine Color Yellow Urine Clarity Clear Urine pH 6.5 Urine Specific Shirley 1.010 Urine Protein Negative mg/dL (NEG-TRACE) Urine Glucose (UA) Negative mg/dL (NEG) Urine Ketones (Stick) Negative mg/dL (NEG) Urine Blood Negative (NEG) Urine Nitrite Negative (NEG) Urine Bilirubin Negative (NEG) Urine Urobilinogen Dipstick 0.2 mg/dL (0.2 mg/dL) Urine Leukocyte Esterase Trace (NEG) Urine RBC 0 /HPF (0-2) Urine WBC 5-10 /HPF (0-4) Urine Squamous Epithelial Cells Few /LPF Urine Bacteria 0 /HPF (0-FEW) White Blood Count 8.8 x10^3/uL (4.0-11.0) 7.0 x10^3/uL (4.0-11.0) Red Blood Count 4.30 x10^6/uL (3.50-5.40) 4.15 x10^6/uL (3.50-5.40) Hemoglobin 11.8 g/dL (12.0-15.5) 11.3 g/dL (12.0-15.5) Hematocrit 36.0 % (36.0-47.0) 34.5 % (36.0-47.0) Mean Corpuscular Volume 84 fL (79-100) 83 fL (79-100) Mean Corpuscular Hemoglobin 27 pg (25-35) 27 pg (25-35) Mean Corpuscular Hemoglobin Concent 33 g/dL (31-37) 33 g/dL (31-37) Red Cell Distribution Width 13.1 % (11.5-14.5) 12.8 % (11.5-14.5) Platelet Count 264 x10^3/uL (140-400) 241 x10^3/uL (140-400) Neutrophils (%) (Auto) 59 % (31-73) 45 % (31-73) Lymphocytes (%) (Auto) 28 % (24-48) 40 % (24-48) Monocytes (%) (Auto) 11 % (0-9) 12 % (0-9) Eosinophils (%) (Auto) 2 % (0-3) 3 % (0-3) Basophils (%) (Auto) 1 % (0-3) 1 % (0-3) Neutrophils # (Auto) 5.2 x10^3/uL (1.8-7.7) 3.1 x10^3/uL (1.8-7.7) Lymphocytes # (Auto) 2.5 x10^3/uL (1.0-4.8) 2.8 x10^3/uL (1.0-4.8) Monocytes # (Auto) 1.0 x10^3/uL (0.0-1.1) 0.8 x10^3/uL (0.0-1.1) Eosinophils # (Auto) 0.1 x10^3/uL (0.0-0.7) 0.2 x10^3/uL (0.0-0.7) Basophils # (Auto) 0.1 x10^3/uL (0.0-0.2) 0.1 x10^3/uL (0.0-0.2) Sodium Level 139 mmol/L (136-145) 146 mmol/L (136-145) Potassium Level 4.3 mmol/L (3.5-5.1) 4.1 mmol/L (3.5-5.1) Chloride Level 105 mmol/L (98-107) 110 mmol/L (98-107) Carbon Dioxide Level 29 mmol/L (21-32) 30 mmol/L (21-32) Anion Gap 5 (6-14) 6 (6-14) Blood Urea Nitrogen 17 mg/dL (7-20) 17 mg/dL (7-20) Creatinine 1.1 mg/dL (0.6-1.0) 1.0 mg/dL (0.6-1.0) Estimated GFR (Cockcroft-Gault) 57.0 63.6 BUN/Creatinine Ratio 15 (6-20) Glucose Level 112 mg/dL (70-99) 86 mg/dL (70-99) Calcium Level 9.7 mg/dL (8.5-10.1) 9.2 mg/dL (8.5-10.1) Magnesium Level 2.0 mg/dL (1.8-2.4) Total Bilirubin 0.7 mg/dL (0.2-1.0) Aspartate Amino Transf (AST/SGOT) 17 U/L (15-37) Alanine Aminotransferase (ALT/SGPT) 15 U/L (14-59) Alkaline Phosphatase 90 U/L (46-116) Creatine Kinase 66 U/L (26-192) Troponin I Quantitative < 0.017 ng/mL (0.000-0.055) Total Protein 7.4 g/dL (6.4-8.2) Albumin 3.3 g/dL (3.4-5.0) Albumin/Globulin Ratio 0.8 (1.0-1.7) Thyroid Stimulating Hormone (TSH) 2.176 uIU/mL (0.358-3.74) Medications Current Medications Sodium Chloride 500 ml @ 500 mls/hr 1X ONCE IV Last administered on 01/28/19at 15:25; Start 01/28/19 at 15:15; Stop 01/28/19 at 16:14; Status DC Acetaminophen (Tylenol) 650 mg PRN Q6HRS PRN PO MILD PAIN / TEMP; Start 01/28/19 at 16:00 Memantine (Namenda) 10 mg DAILY PO ; Start 01/29/19 at 09:00 Vitamin D (Vitamin D3) 1,000 unit DAILY PO ; Start 01/29/19 at 09:00 Calcium Carbonate/ Glycine (Oscal) 500 mg DAILY PO ; Start 01/29/19 at 09:00 Aspirin (Children'S Aspirin) 81 mg DAILY PO ; Start 01/29/19 at 09:00 Active Scripts Active Deltasone (Prednisone) 20 Mg Tablet 20 Mg PO DAILY 6 Days Thera-M Tablet (Multivits,Ca,Minerals/Iron/Fa) 1 Each Tablet 1 Tab PO DAILY 30 Days Donepezil Hcl 10 Mg Tablet 10 Mg PO DAILY 30 Days Vitamin D (Cholecalciferol (Vitamin D3)) 1,000 Unit Tablet 1,000 Unit PO DAILY 30 Days Aspirin 325 Mg Tablet 81 Mg PO DAILYWBKFT 30 Days Reported Aspir 81 (Aspirin) 81 Mg Tablet. 1 Tab PO DAILY Vitals/I & O Vital Sign - Last 24 Hours 01/28/19 01/28/19 01/28/19 01/28/19 12:41 13:09 14:09 14:12 Temp 98.3 98.3 Pulse 60 58 58 66 Resp 18 18 18 18 B/P (MAP) 131/65 (87) 120/58 (78) 154/79 (104) 120/70 (87) Pulse Ox 96 96 96 95 O2 Delivery Room Air Room Air Room Air Room Air 01/28/19 01/28/19 01/28/19 01/28/19 15:24 15:54 17:01 17:40 Temp 98.4 98.4 Pulse 58 62 67 Resp 18 18 16 B/P (MAP) 157/67 (97) 150/81 (104) 117/49 (71) Pulse Ox 96 94 96 O2 Delivery Room Air Room Air Room Air Room Air 01/28/19 01/28/19 01/28/19 01/29/19 19:38 19:45 23:49 03:43 Temp 98.4 98.9 98.8 98.4 98.9 98.8 Pulse 63 60 69 Resp 18 18 18 B/P (MAP) 134/65 (88) 142/65 (90) 165/60 (95) Pulse Ox 98 98 97 O2 Delivery Room Air Room Air Room Air Room Air 01/29/19 07:00 Temp 97.5 97.5 Pulse 65 Resp 17 B/P (MAP) 124/72 (89) Pulse Ox 100 O2 Delivery Room Air Intake and Output 01/28/19 01/28/19 01/29/19 14:59 22:59 06:59 Intake Total 500 ml 600 ml Balance 500 ml 600 ml MUNA CASTANEDA MD Jan 29, 2019 10:08
[2019-01-29] MEDS ORDERED: CALC500T13 PO (10:12)
[2019-01-29] MEDS ORDERED: MEMA10TA20 PO (10:12)
--- NOTE | 2019-01-29 10:12 | DISCH ---
DISCHARGE INSTRUCTIONS Condition on Discharge Condition on Discharge: Stable Activity After Discharge Activity Instructions for Disc: Resume previous activity Diet after Discharge Diet after Discharge: Regular Contacting the DRZoe after DC Call your doctor for: If your condition worsens Follow-Up Follow up with: dr. castaneda next week MUNA CASTANEDA MD Jan 29, 2019 10:12
--- NOTE | 2019-01-29 10:15 | PDOC ---
Provider Note Provider Note discharge summary dictated # [id number] MUNA CASTANEDA MD Jan 29, 2019 10:15
--- NOTE | 2019-01-29 10:27 | NUR ---
Orthostatics on patient. Laying 115/61 P64, Sitting 117/56 P 68, Standing 102/60 P 72
--- NOTE | 2019-01-29 10:30 | DS ---
DATE OF DISCHARGE: 01/29/2019 CONSULTANTS: Dr. Monteiro. FINAL DIAGNOSES: 1. Syncope, most likely secondary to orthostatic hypotension. 2. Orthostatic hypotension secondary to inadequate oral fluid intake. 3. Dementia. 4. Osteopenia. HOSPITAL COURSE: The patient is an 88-year-old -[place] female with a history of dementia who exercises 3 days a week and while doing her exercises jumping up and down, she sat down and had a syncopal episode for 30 seconds without any chest pain, shortness of breath, dizziness or palpitations prior to it. She went to the [facility] Emergency Room. She had some orthostatic hypotension with a BUN of 17, creatinine 1.1, hemoglobin 11.8. She received IV normal saline bolus. Subsequently, admitted to the hospital. She was started on telemetry with no significant arrhythmias. An echocardiogram showed a preserved left ventricular ejection fraction with a stage 1 left ventricular diastolic dysfunction. She did fine. She was able to ambulate in the room without any dizziness. She can be dismissed to home later today if it is okay with the lead javascript engineer. Her Aricept was discontinued and she had a heart rate of 56 or so in the Emergency Room. So, she will be dismissed to home on aspirin 81 mg every day, Namenda 10 mg once a day, multivitamin once a day, calcium 500 mg every day, vitamin D 1000 units every day. Told to see Dr. Norman in the office next week. She was told to drink plenty of fluids and stand up slowly. MUNA NORMAN MD DR: JOSE CARLOS/nino JOB#: [id number] / [id number]
[2019-01-29 11:00] VITALS: BP 146/69
--- NOTE | 2019-01-29 13:08 | EKG ---
[facility] [address] [place] [address] Test Date: 2019-01-29 Test Time: 12:58:40 Pat Name: EDMOND STONE Department: Room: 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
[2019-01-29 15:00] VITALS: BP 130/62
--- NOTE | 2019-01-29 16:00 | NUR ---
Escorted patient out to family vehicle to main entrance via wheelchair. Faired well.
== END 2019-01-29 16:07 | disposition home or self-care (01) ==
LOC: ER 12:13 → 6 SOUTH 14:31
PROVIDERS: ADMIT Internal Medicine; ATTEND Internal Medicine
DX: R55 Syncope and collapse (principal); F03.90 Unspecified dementia, unspecified severity, without behavioral disturbance, psychotic disturbance, mood disturbance, and anxiety; E78.5 Hyperlipidemia, unspecified; I95.1 Orthostatic hypotension; D64.9 Anemia, unspecified; M85.80 Other specified disorders of bone density and structure, unspecified site; R00.1 Bradycardia, unspecified; K64.8 Other hemorrhoids; I11.9 Hypertensive heart disease without heart failure; I51.9 Heart disease, unspecified; Z79.82 Long term (current) use of aspirin; Z86.010 Personal history of colon polyps; Z98.890 Other specified postprocedural states
CPT/HCPCS: 36415; 70450; 71045; 80048; 80053; 81001; 82550; 83735; 84443; 84484; 85025; 87086; 93005; 93306; 96360; 99284; G0378; J7040; G0379

== ENCOUNTER 2019-02-04 09:01 | Observation (INO) | payer OTHER ==
[~2019-02-04] VITALS: Ht 167.6 cm; Wt 72.7 kg
[2019-02-04] VITALS (13 sets, daily range): BP systolic 117–147; BP diastolic 60–93
[~2019-02-04 09:01] MED LIST changes: +BACITRACIN 50,000 UNIT in IV NORMAL SALINE 250ML 250 ML IRR ONE; +CALC500T13 PO; +MEMA10TA20 PO
[2019-02-04 09:37] LABS: HEMATOCRIT 33.7 % (36.0-47.0); HEMOGLOBIN 11.1 g/dL (12.0-15.5); RED BLOOD COUNT 4.07 x10^6/uL (3.50-5.40); RED CELL DISTRIBUTION WIDTH 12.7 % (11.5-14.5); WHITE BLOOD COUNT 6.5 x10^3/uL (4.0-11.0)
[2019-02-04] MEDS ORDERED: LIDOCAINE 2%/EPI 1:100,000 20 ML VIAL. ONE (09:37)
[2019-02-04 09:43] LABS: CALCIUM 9.5 mg/dL (8.5-10.1); CREATININE 1.1 mg/dL (0.6-1.0); POTASSIUM 3.7 mmol/L (3.5-5.1)
[2019-02-04 09:47] LABS: PROTHROMBIN TIME PATIENT 13.2 SEC (11.7-14.0)
[2019-02-04] MEDS ORDERED: IOHEXOL 300 MG/ML 100ML VIAL. ONE (10:11)
--- NOTE | 2019-02-04 10:12 | EKG ---
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
[2019-02-04] MEDS ORDERED: MIDAZOLAM HCL/PF 5 MG/5 ML VIAL. ONE (10:28)
[2019-02-04] MEDS ORDERED: fentaNYL PF VIAL 100 MCG/2 ML VIAL ONE (10:28)
[2019-02-04] MEDS ORDERED: LIDOCAINE 2% 20 ML VIAL. IJ ONE (11:00)
[2019-02-04] MEDS ORDERED: MIDAZOLAM HCL/PF 5 MG/5 ML VIAL. IV ONE (11:00)
[2019-02-04] MEDS ORDERED: fentaNYL PF VIAL 100 MCG/2 ML VIAL IV ONE (11:00)
[2019-02-04] MEDS ORDERED: NO ANTICOAGULANT THERAPY. MC PRN (13:45)
[2019-02-04] MEDS ORDERED: ONDANSETRON PF 4 MG/2 ML VIAL. IV PRN (13:45)
[2019-02-04] MEDS ORDERED: oxyCODONE/APAP 5/325 1 TAB TABLET PO PRN (13:45)
[2019-02-04] MEDS ORDERED: ceFAZolin SODIUM 1 GM in IV DEXTROSE 5% 50 ML IV ONE (14:00)
--- NOTE | 2019-02-04 14:31 | RAD ---
EXAM: Chest, single view. HISTORY: Pacemaker placement. COMPARISON: 01/28/2019. FINDINGS: A frontal view of the chest is obtained. There has been placement of a dual lead cardiac pacemaker overlying expected position. There is no pneumothorax. There is no pleural effusion. The heart is normal in size. IMPRESSION: Dual lead left cardiac pacemaker overlying expected position. Electronically signed by: Emily Bartlett MD (02/04/2019 2:28 PM) [facility]
[2019-02-04] MEDS ORDERED: FLU VAX QS 2019-20 (36MOS+)/PF 0.5 ML SYRINGE. VAX IM ONE (15:30)
[2019-02-04] MEDS ORDERED: ceFAZolin SODIUM IV Push 1 GM VIAL. IVP ONE (17:00)
[2019-02-05 03:00] VITALS: BP 129/75
[2019-02-05] MEDS ORDERED: ceFAZolin SODIUM 1 GM in IV DEXTROSE 5% 50 ML IV ONE (06:00)
[2019-02-05 07:00] VITALS: BP 143/70
[2019-02-05] MEDS ORDERED: MEMANTINE 10 MG TABLET. PO SCH (09:00)
[2019-02-05 11:00] VITALS: BP 145/74
--- NOTE | 2019-02-05 13:04 | NUR ---
SS following for discharge planning. SS reviewed pt chart. Pt is from home and is currently on room air. No discharge needs noted at this time. SS will continue to follow for discharge planning.
--- NOTE | 2019-02-05 13:54 | CARD ---
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 An incision was made over the left infraclavicular fossa and using blunt dissection and cautery a pocket was created. Venous access was obtained in the left subclavia n vein and 6 Gibraltarian sheaths were inserted. Subsequently, a [employer] Lee bipolar active fixation right ventricular lead model Tendril SN: [id number] w as advanced under fluoroscopic guidance and the tip was positioned in the right ventricular apex. Fo llowing this, a [employer] Lee bipolar active fixation right atrial lead model Tendril SN: [id number] was pl aced in the right atrial appendage under fluoroscopy guidance. The leads were secured into place and were attached to a [employer] Lee dual-chamber permanent pacemaker generator model Assurity MRI, [place] [id number]. This was placed in the pocket that was subsequently closed in 3 layers. Hemostasis was secured. At the end of procedure, the right ventricular lead showed sensing amplitude of 8.7 mV, impedance of 930 ohms and a threshold of 0.5 volts. The right atrial lead showed a sensing amplitude of 5.0 ar volts, impedance of 640 ohms and a threshold of 0.75 volts. Patient tolerated the procedure well. Th ere were no immediate complications. CONSCIOUS SEDATION AGENTS Sedation Time: 67 min CONCLUSION Successful insertion of a [employer] Lee MRI compatible dual chamber pacemaker for SSS/Mobitz Type 2 block and syncope. Signed by : Fe Rocha, Electronically Approved : 02/04/2019 13:40:45
--- NOTE | 2019-02-05 14:09 | PDOC3 ---
ROBERTA BRITTON SUPPORT SERVICES COORDINATOR 02/05/19 1409: Discharge Summary Visit Information Date of Admission: Feb 04, 2019 Date of Discharge: Feb 05, 2019 Admitting Diagnosis: SSS/mobitz type 2/syncope Final Diagnosis SSS/mobitz type 2/syncope, S/P PPM Brief Hospital Course Allergies Allergies Coded Allergies Type Severity Reaction Last Updated Verified No Known Drug Allergies 06/27/17 No Vital Signs Vital Signs Date Time Temp Pulse Resp B/P (MAP) Pulse Ox O2 Delivery O2 Flow Rate FiO2 02/05/19 11:00 98.7 65 18 145/74 (97) 97 Room Air 98.7 02/04/19 11:49 2.0 Lab Results Laboratory Tests Test 02/04/19 09:25 White Blood Count 6.5 x10^3/uL (4.0-11.0) Red Blood Count 4.07 x10^6/uL (3.50-5.40) Hemoglobin 11.1 g/dL (12.0-15.5) Hematocrit 33.7 % (36.0-47.0) Mean Corpuscular Volume 83 fL (79-100) Mean Corpuscular Hemoglobin 27 pg (25-35) Mean Corpuscular Hemoglobin Concent 33 g/dL (31-37) Red Cell Distribution Width 12.7 % (11.5-14.5) Platelet Count 300 x10^3/uL (140-400) Prothrombin Time 13.2 SEC (11.7-14.0) Prothromb Time International Ratio 1.0 (0.8-1.1) Sodium Level 144 mmol/L (136-145) Potassium Level 3.7 mmol/L (3.5-5.1) Chloride Level 108 mmol/L (98-107) Carbon Dioxide Level 28 mmol/L (21-32) Anion Gap 8 (6-14) Blood Urea Nitrogen 17 mg/dL (7-20) Creatinine 1.1 mg/dL (0.6-1.0) Estimated GFR (Cockcroft-Gault) 57.0 Glucose Level 105 mg/dL (70-99) Calcium Level 9.5 mg/dL (8.5-10.1) Brief Hospital Course Ms. Brown is a 88 old AA female admitted for planned PPM. 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 Successful insertion of a [employer] MRI compatible dual chamber pacemaker. Repeat interrogation revealed higher impedances which will be monitored as an outpt as she will have her wound check in 2 weeks with repeat interrogation. CXR revealed no pneumothorax and she tolerated the procedure well. Discussed post op instructions with daughter and pt. Her VSS. LUE neurovascular status intact, Sling in place. Left chest incision is intact with steristrips without swelling or oozing. She does have mild irritation inferior to her incision due to adhesive taping and a 2.5 cm width superficial skin peeled due to taping. Wound care has been consulted for skin care recommendation prior to DC. She also developed low grade fever overnight and continued on this morning. WBC nml. Noted past UA with trace pyuria. Likely this post fever is from atelectasis but given she had trace pyuria upon chart review from previous admission will treat with rocephin IV today and DC with Keflex PO. Follow up wound check February 11:10 AM. Discharge Information Condition at Discharge: Stable Follow Up: Weeks (2) Disposition/Orders: D/C to Home Scheduled Cephalexin (Keflex) 500 Mg Capsule, 1 CAP PO BID for fever, UTI for 5 Days, #10 Prescribed by: ROBERTA BRITTON on 02/05/19 1707 Memantine HCl (Memantine HCl) 10 Mg Tablet, 10 MG PO DAILY for dementia, #30 Prescribed by: MUNA CASTANEDA on 01/29/19 1012 Last Action: Continued on 02/04/19 1624 by RUIZ MALDONADO RN Discontinued Medications Donepezil Hcl (Donepezil Hcl) 10 Mg Tablet, 10 MG PO DAILY for 30 Days, #30 Prescribed by: MUNA CASTANEDA on 06/28/17 1251 Prednisone (Deltasone) 20 Mg Tablet, 20 MG PO DAILY for 6 Days, #6 Prescribed by: MUNA CASTANEDA on 06/28/17 1251 Patient Instructions Patient Instructions Must know & what to expect after device implant: 1. Your surgical dressing should be removed prior to discharge from the hospital, but allow the steri- strips to fall off naturally. 2. Activity restrictions: DO NOT raise arm above shoulder level, lift anything heavier than a gallon of milk, and no push or pull motions such as vacuuming/lawn mowing, no swinging motions (golf), etc for 4 weeks. 3. It is OK to use a cell phone or other electronic devices just be sure you do not store it in a breast pocket on the side where the device was placed. 4. Device will be interrogated prior to your discharge from the hospital and then every 3 months for defibrillators and every 6 months for pacemakers. You may be asked to have your device checked remotely from home as well, but this will depend on your particular physician�s preference. 5. You may remove the arm immobilizer the day after device placement. Wear the arm immobilizer/splint at night (during sleep times) for 2 week to prevent unintended arm movement that can cause lead dislodgement. 6. Do not drive for one week as the task of driving may lead to unintended arm motion that may cause lead dislodgement. The seatbelt will also rub against the incision site & cause irritation. 7. It is our recommendation that you utilize Tylenol at home for pain control. You need to call our office if you are having uncontrollable pain at the incision site. 8. Keep your incision clean and dry. It is OK to shower. DO NOT submerge in bath, pool, or hot tub, until cleared by your doctor, as this could lead to increase risk of infection.. It is OK to use regular soap just do not scrub the incision site. Water spray from shower should not directly hit the incision. Be sure to blot dry not rub. 9. Inspect your incision daily. If you notice any increased redness, swelling, or drainage, or if you start running a fever, call the office immediately. The number is [phone]. 10. For women, if you need to protect against irritation from the bra straps, you can place a piece of gauze over the incision site for cushion. Please be sure to tape it loosely to allow air to the site & remove the gauze when you remove the bra. 11. Be sure to carry your device identification information card in your wallet/purse at all times. 12. It is OK to go through security at the airport with your device, but be sure to let the TSA know prior to proceeding as the security settings change depending on varying factors. Please do whatever is requested by security at that time. 13. Some of the newer devices may be MRI compatible but, currently, the use of these devices is not widespread, so you likely will not be able to have an MRI. Please clarify this with your physician. If at any time, you feel lightheaded or dizzy/faint, stop what you are doing & lie down immediately. If you are driving, get to the side of the road quickly, turn your car off & call 911 on your cell phone. DO NOT continue to drive as this may cause an accident that seriously injures yourself &/or others. Call the office at [phone] for any questions or concerns. FE ROCHA MD 02/05/19 2158: Discharge Summary Brief Hospital Course Brief Hospital Course Pt. seen and examined. Agree with above BUSINESS ENTERPRISE OFFICER note. 88 y.o woman underwent successful dual chamber pacemaker insertion on 02/04/2019 Her post-operative interrogation on Day 1 revealed higher thresholds with normal sens/impedance. Given adequate sens/impedance, her age, risk of infection with repeat intervention and adequate appearance of leads on CXR, further manipulation was deferred. She will have close f/u of the parameters in 2 weeks at the wound care evaluations. Abx as above ROBERTA BRITTON APRN Feb 05, 2019 14:09 FE ROCHA MD Feb 05, 2019 21:58
[2019-02-05 14:33] LABS: HEMATOCRIT 32.3 % (36.0-47.0); HEMOGLOBIN 10.6 g/dL (12.0-15.5); RED BLOOD COUNT 3.94 x10^6/uL (3.50-5.40); RED CELL DISTRIBUTION WIDTH 12.9 % (11.5-14.5); WHITE BLOOD COUNT 8.5 x10^3/uL (4.0-11.0)
[2019-02-05 15:00] VITALS: BP 105/49
--- NOTE | 2019-02-05 15:06 | RAD ---
EXAM: Chest, 2 views. HISTORY: Pacemaker placement. COMPARISON: 02/04/2019 FINDINGS: 2 views of the chest are obtained. There is a dual lead left cardiac pacemaker leads overlying expected position. There is no infiltrate, pleural effusion or pneumothorax. There is suspected bilateral basilar atelectasis or scarring. IMPRESSION: No acute pulmonary finding. Electronically signed by: Emily Bartlett MD (02/05/2019 3:04 PM) [place] [id number]
[2019-02-05] MEDS ORDERED: cefTRIAXone IV Push 1 GM VIAL. IVP ONE (16:30)
[2019-02-05] MEDS ORDERED: CEPH-264 PO (17:07)
--- NOTE | 2019-02-05 17:44 | NUR ---
Discharge Note: EDMOND STONE Discharge instructions and discharge home medications reviewed with Patient and a copy given. All questions have been answered and understanding verbalized. The following instructions and handouts were given: Keflex, pacemaker after care Patient discharged to home or self care with self via wheelchair
--- NOTE | 2019-02-11 17:35 | PDOC ---
Provider Note Provider Note REASON FOR ADMISSION: PACEMAKER PLACEMENT FOR HIGH GRADE AV BLOCK *LATE ENTRY HISTORY OF PRESENT ILLNESS HISTORY OF PRESENT ILLNESS This is a pleasant 88 yo female admitted for complains of passing out last week to the hospital. Reports that she exercise at the gym 3x a week. Due to telemetry evidence of high grade AV block she was brought to the fence laborer electively for pacemaker placement. PAST MEDICAL HISTORY Cardiovascular: HTN, Hyperlipidemia Pulmonary: No pertinent hx CENTRAL NERVOUS SYSTEM: Dementia GI: Other (colon polyp) Heme/Onc: No pertinent hx Hepatobiliary: No pertinent hx Psych: No pertinent hx Musculoskeletal: Osteoarthritis Rheumatologic: No pertinent hx Infectious disease: No pertinent hx ENT: No pertinent hx Renal/: No pertinent hx Endocrine: Osteopenia Dermatology: No pertinent hx PAST SURGICAL HISTORY Past Surgical History: Other (colon polypectomy) FAMILY HISTORY Family History noncontributory to age CURRENT MEDICATIONS CURRENT MEDICATIONS No pertinent CV meds. ALLERGIES ALLERGIES: Coded Allergies: No Known Drug Allergies (Unverified , 06/27/17) ROS Review of System 14 point ROS evaluated with pertinent positives noted per HPI PHYSICAL EXAM General: Alert, Oriented X3, Cooperative, No acute distress HEENT: Atraumatic, Mucous membr. moist/pink Lungs: Clear to auscultation, Normal air movement Heart: Regular rate (SR), Normal S1, Normal S2, No murmurs Abdomen: Soft, No tenderness Extremities: No cyanosis, No edema Skin: No breakdown, No significant lesion Neuro: Normal speech, Sensation intact Psych/Mental Status: Mental status NL, Mood NL MUSCULOSKELETAL: Osteoarthritic changes both hands VITALS/I&O VITALS/I&O: Vital Signs AF - VSS LABS Lab: Laboratory Tests Test 01/28/19 13:00 01/28/19 13:09 01/29/19 06:10 Urine Collection Type Unknown Urine Color Yellow Urine Clarity Clear Urine pH 6.5 Urine Specific [place] 1.010 Urine Protein Negative mg/dL (NEG-TRACE) Urine Glucose (UA) Negative mg/dL (NEG) Urine Ketones (Stick) Negative mg/dL (NEG) Urine Blood Negative (NEG) Urine Nitrite Negative (NEG) Urine Bilirubin Negative (NEG) Urine Urobilinogen Dipstick 0.2 mg/dL (0.2 mg/dL) Urine Leukocyte Esterase Trace (NEG) Urine RBC 0 /HPF (0-2) Urine WBC 5-10 /HPF (0-4) Urine Squamous Epithelial Cells Few /LPF Urine Bacteria 0 /HPF (0-FEW) White Blood Count 8.8 x10^3/uL (4.0-11.0) 7.0 x10^3/uL (4.0-11.0) Red Blood Count 4.30 x10^6/uL (3.50-5.40) 4.15 x10^6/uL (3.50-5.40) Hemoglobin 11.8 g/dL (12.0-15.5) L 11.3 g/dL (12.0-15.5) L Hematocrit 36.0 % (36.0-47.0) 34.5 % (36.0-47.0) L Mean Corpuscular Volume 84 fL (79-100) 83 fL (79-100) Mean Corpuscular Hemoglobin 27 pg (25-35) 27 pg (25-35) Mean Corpuscular Hemoglobin Concent 33 g/dL (31-37) 33 g/dL (31-37) Red Cell Distribution Width 13.1 % (11.5-14.5) 12.8 % (11.5-14.5) Platelet Count 264 x10^3/uL (140-400) 241 x10^3/uL (140-400) Neutrophils (%) (Auto) 59 % (31-73) 45 % (31-73) Lymphocytes (%) (Auto) 28 % (24-48) 40 % (24-48) Monocytes (%) (Auto) 11 % (0-9) H 12 % (0-9) H Eosinophils (%) (Auto) 2 % (0-3) 3 % (0-3) Basophils (%) (Auto) 1 % (0-3) 1 % (0-3) Neutrophils # (Auto) 5.2 x10^3/uL (1.8-7.7) 3.1 x10^3/uL (1.8-7.7) Lymphocytes # (Auto) 2.5 x10^3/uL (1.0-4.8) 2.8 x10^3/uL (1.0-4.8) Monocytes # (Auto) 1.0 x10^3/uL (0.0-1.1) 0.8 x10^3/uL (0.0-1.1) Eosinophils # (Auto) 0.1 x10^3/uL (0.0-0.7) 0.2 x10^3/uL (0.0-0.7) Basophils # (Auto) 0.1 x10^3/uL (0.0-0.2) 0.1 x10^3/uL (0.0-0.2) Sodium Level 139 mmol/L (136-145) 146 mmol/L (136-145) H Potassium Level 4.3 mmol/L (3.5-5.1) 4.1 mmol/L (3.5-5.1) Chloride Level 105 mmol/L (98-107) 110 mmol/L (98-107) H Carbon Dioxide Level 29 mmol/L (21-32) 30 mmol/L (21-32) Anion Gap 5 (6-14) L 6 (6-14) Blood Urea Nitrogen 17 mg/dL (7-20) 17 mg/dL (7-20) Creatinine 1.1 mg/dL (0.6-1.0) H 1.0 mg/dL (0.6-1.0) Estimated GFR (Cockcroft-Gault) 57.0 63.6 BUN/Creatinine Ratio 15 (6-20) Glucose Level 112 mg/dL (70-99) H 86 mg/dL (70-99) Calcium Level 9.7 mg/dL (8.5-10.1) 9.2 mg/dL (8.5-10.1) Magnesium Level 2.0 mg/dL (1.8-2.4) Total Bilirubin 0.7 mg/dL (0.2-1.0) Aspartate Amino Transferase (AST) 17 U/L (15-37) Alanine Aminotransferase (ALT) 15 U/L (14-59) Alkaline Phosphatase 90 U/L (46-116) Creatine Kinase 66 U/L (26-192) Troponin I Quantitative < 0.017 ng/mL (0.000-0.055) Total Protein 7.4 g/dL (6.4-8.2) Albumin 3.3 g/dL (3.4-5.0) L Albumin/Globulin Ratio 0.8 (1.0-1.7) L Laboratory Tests 01/28/19 13:09 9/20/19 06:10 Laboratory Tests 01/28/19 13:09 01/29/19 06:10 ASSESSMENT/PLAN ASSESSMENT/PLAN 1. Bradyarrhythmia: Brief episodes of mobitz type 2. Negative for CSH and orthostasis 2. Syncope: due to above. 3. Dementia Recommendations 1. After discussion of risks and benefits with patient and family, they are agreeable to proceed with pacemaker placement. FE ROCHA MD Feb 11, 2019 17:35
== END 2019-02-05 17:30 | disposition home or self-care (01) ==
LOC: CCL 09:01 → 2 NORTH 14:32
PROVIDERS: ADMIT Internal Medicine Cardiovascular Disease; ATTEND Internal Medicine Cardiovascular Disease
DX: I49.5 Sick sinus syndrome (principal); R55 Syncope and collapse; J98.11 Atelectasis; I44.1 Atrioventricular block, second degree; F03.90 Unspecified dementia, unspecified severity, without behavioral disturbance, psychotic disturbance, mood disturbance, and anxiety; E78.5 Hyperlipidemia, unspecified; I10 Essential (primary) hypertension; I49.8 Other specified cardiac arrhythmias; M85.80 Other specified disorders of bone density and structure, unspecified site; Z95.0 Presence of cardiac pacemaker; Z87.19 Personal history of other diseases of the digestive system; Z23 Encounter for immunization
CPT/HCPCS: 33208; 36415; 71045; 71046; 80048; 85027; 85610; 90471; 90686; 93005; 96365; 96367; 96375; 96376; C1785; C1898; G0378; G0379; J0690; J0696; J2001; J2250; J3010; J3490; J7050; 99152; 99153; J7030

== ENCOUNTER 2019-02-23 10:54 | Observation (INO) | payer OTHER ==
[2019-02-23] VITALS (11 sets, daily range): BP systolic 147–167; BP diastolic 67–88
[~2019-02-23] VITALS: Ht 167.6 cm; Wt 72.1 kg
[~2019-02-23 10:54] MED LIST changes: -BACITRACIN 50,000 UNIT in IV NORMAL SALINE 250ML 250 ML IRR ONE; +CEPH-264 PO; +HEPARIN for IV BOLUS 10,000 UNIT/10 ML VIAL. ONE; +MIDAZOLAM HCL/PF 2 MG/2 ML VIAL. ONE; +NITROGLYCERIN 200 MCG/2 ML SYRINGE FOR CATH/VASC LAB. ONE; +VERAPAMIL 5 MG/2 ML VIAL. ONE; +fentaNYL PF VIAL 100 MCG/2 ML VIAL ONE
[2019-02-23] MEDS ORDERED: ceFAZolin SODIUM 1 GM in IV DEXTROSE 5% 50 ML IV ONE (11:15)
[2019-02-23] MEDS ORDERED: BACITRACIN 50,000 UNIT in IV NORMAL SALINE 250ML 250 ML IRR ONE (11:30)
[2019-02-23] MEDS ORDERED: MIDAZOLAM HCL/PF 2 MG/2 ML VIAL. ONE (12:11)
[2019-02-23] MEDS ORDERED: fentaNYL PF VIAL 100 MCG/2 ML VIAL ONE (12:11)
[2019-02-23] MEDS ORDERED: MIDAZOLAM HCL/PF 2 MG/2 ML VIAL. IV ONE (12:15)
[2019-02-23] MEDS ORDERED: fentaNYL PF VIAL 100 MCG/2 ML VIAL IV ONE (12:15)
[2019-02-23] MEDS ORDERED: LIDOCAINE 2%/EPI 1:100,000 20 ML VIAL. IJ ONE (12:15)
[2019-02-23] MEDS ORDERED: LIDOCAINE 2%/EPI 1:100,000 20 ML VIAL. ONE (12:18)
--- NOTE | 2019-02-23 12:37 | PDOC ---
MODERATE SEDATION ASSESSMENT RISKS/ALTERNATIVES Risks/Alternatives Risks and alternatives of this type of sedation and procedure discussed with: RISK/ALTERNATIVES: Patient H & P ON CHART H & P H & P on chart and reviewed for co-morbid conditions and appropriate labs. H&P ON CHART: Yes STATUS PREG STATUS ASSESSED: N/A MEDS/ALLERGIES REVIEWED Meds/Allergies Reviewed Medications and Allergies including time and route of recently administered narcotics and sedatives. MEDS/ALLERGIES REVIEWED: Yes ASA RATING ASA RATING: II AIRWAY ASSESSMENT Airway Assessment Airway patency, oral function limitations, presence of caps, crowns, dentures, partials, and ability to extend neck assessed. AIRWAY ASSESSMENT: Yes MALLAMPATI SCORE MALLAMPATI SCORE: II PRE-SEDATION ASSESSMENT PRE-SEDATION ASSESSMENT: Yes FE ROCHA MD Feb 23, 2019 12:37
--- NOTE | 2019-02-23 12:39 | PDOC ---
Provider Note Provider Note 88 y.o woman presenting to the prosthetic lab technician for RV lead revision. She had an uneventful primary lead placement 2 weeks ago. She had a skin tear inferior to the incision line while her dressing was removed but overall her incision had been healing well. During her wound check a repeat device check revealed non-capture with the RV lead. Discussed with patient's daughter that she likely had lead dislodgement and therefore, pt. was consented for lead revision. On exam, her skin tear is scabbing over well w/o obvious signs of infection. No chest pain. In talking with family, patient has not been fully compliant with left arm restriction. Will re-emphasize upon discharge. FE ROCHA MD Feb 23, 2019 12:39
--- NOTE | 2019-02-23 14:34 | CARD ---
MR#: [id number] Date of Study: 02/23/2019 Ordering Physician: FE ROCHA, Referring Physician: FE ROCHA, Tech: APPROVED REPORT HISTORY The Patient is a 88 year-old female with a history of SSS, High grade AVB Fluoro time: 7.2min Dose:[id number] moderate sedation: 77 mins INDICATIONS RV lead revision due to macro dislodgement. IMPLANTED DEVICES After appropriate informed consent, the patient was brought to the optical lab technician. The left chest was prepp ed and draped in usual sterile fashion. 30 mL of 2% lidocaine was instilled in the left infraclavicul ar area. The incision was opened without difficulty and the previous RV lead sutures were removed. Wi th a preformed stylet, the RV lead was manipulated from the apex to a more mid to apical septal posit ion. The lead was stressed multiple times with the stylet and multiple coughs/deep breaths were perfo rmed to assure that the lead was secured in place. Final lead measurements revealed excellent thresho lds at 0.75V at 0.4 ms, Impedance of 450 and Sensitivity of > 12. No acute complications noted. The incision was then closed in 3 layers after adequate hemostasis in the pocket. The patient receive d abx prior to incision. CONCLUSION 1. Successful [employer] RV lead revision with excellent thresholds/parameters. (See prior report for f ull details on lead serial numbers/settings etc). Signed by : Fe Rocha, Electronically Approved : 02/23/2019 14:34:10
[2019-02-23] MEDS ORDERED: ACETAMINOPHEN 325 MG TABLET. PO PRN (15:30)
[2019-02-23] MEDS ORDERED: HYDROcodone/APAP 5/325MG 1 TAB TABLET PO PRN (15:30)
[2019-02-23] MEDS ORDERED: ceFAZolin SODIUM IV Push 1 GM VIAL. IVP ONE (21:30)
[2019-02-24 03:11] VITALS: BP 149/70
[2019-02-24 07:00] VITALS: BP 136/74
--- NOTE | 2019-02-24 08:37 | PDOC3 ---
ROBERTA BRITTON FAST FOOD DELIVERY DRIVER 02/24/19 0837: Discharge Summary Visit Information Date of Admission: Feb 23, 2019 Date of Discharge: Feb 24, 2019 Admitting Diagnosis: RV lead dislodgement, PPM, SSS Final Diagnosis SSS, PPM, S/P lead revision Brief Hospital Course Allergies Allergies Coded Allergies Type Severity Reaction Last Updated Verified No Known Drug Allergies 06/27/17 No Vital Signs Vital Signs Date Time Temp Pulse Resp B/P (MAP) Pulse Ox O2 Delivery O2 Flow Rate FiO2 02/24/19 07:00 98.3 69 18 136/74 (94) 97 Room Air 98.3 02/23/19 14:02 2.0 Brief Hospital Course Ms. Brown is an 88 yo female who recently had PPM due to symptomatic SSS. She was reevaluated in our office for wound check and also interrogation. Her wound has scabbed over with mild erythema to site inferior to incision otherwise no erythema to incision. Her interrogation revealed abnormal impedances suggesting RV macodislodgement hence she came in today for lead revision. She tolerated the procedure well with no immediate complications. Noted with isolated fever post operatively otherwise none further and VSS. Denies any pain, no arrhythmias. Left surgical incision intact without erythema, well approximated with steri strips. Currently atrial pacing with post revision interrogation revealing normal function. Her wound is likely from skin traction resulting to epidermal peeling and not from adhesion/tape reaction. No discolored oozing noted and with mild erythema around the previous wound. Wound care has been consulted to address dressing changes prior to DC and home health care to further wound care as an outpt. Discussed post pacer care and wound care with pt and daughter. Follow up in office as scheduled. Discharge Information Condition at Discharge: Stable Follow Up: Months (3) Disposition/Orders: D/C to Home w/ HH Scheduled Memantine HCl (Memantine HCl) 10 Mg Tablet, 10 MG PO DAILY for dementia, #30 Prescribed by: MUNA CASTANEDA on 01/29/19 1012 Last Taken: Unknown Dose on 02/22/19 Last Action: Continued on 02/23/19 1834 by JOHN ALARCON Patient Instructions Patient Instructions Must know & what to expect after device implant: 1. Your surgical dressing should be removed prior to discharge from the hospital, but allow the steri- strips to fall off naturally. 2. Activity restrictions: DO NOT raise arm above shoulder level, lift anything heavier than a gallon of milk, and no push or pull motions such as vacuuming/lawn mowing, no swinging motions (golf), etc for 4 weeks. 3. It is OK to use a cell phone or other electronic devices just be sure you do not store it in a breast pocket on the side where the device was placed. 4. Device will be interrogated prior to your discharge from the hospital and then every 3 months for defibrillators and every 6 months for pacemakers. You may be asked to have your device checked remotely from home as well, but this will depend on your particular physicians preference. 5. You may remove the arm immobilizer the day after device placement. Wear the arm immobilizer/splint at night (during sleep times) for 2 week to prevent unintended arm movement that can cause lead dislodgement. 6. Do not drive for one week as the task of driving may lead to unintended arm motion that may cause lead dislodgement. The seatbelt will also rub against the incision site & cause irritation. 7. It is our recommendation that you utilize Tylenol at home for pain control. You need to call our office if you are having uncontrollable pain at the incision site. 8. Keep your incision clean and dry. It is OK to shower. DO NOT submerge in bath, pool, or hot tub, until cleared by your doctor, as this could lead to increase risk of infection.. It is OK to use regular soap just do not scrub the incision site. Water spray from shower should not directly hit the incision. Be sure to blot dry not rub. 9. Inspect your incision daily. If you notice any increased redness, swelling, or drainage, or if you start running a fever, call the office immediately. The number is [phone]. 10. For women, if you need to protect against irritation from the bra straps, you can place a piece of gauze over the incision site for cushion. Please be sure to tape it loosely to allow air to the site & remove the gauze when you remove the bra. 11. Be sure to carry your device identification information card in your wallet/purse at all times. 12. It is OK to go through security at the airport with your device, but be sure to let the TSA know prior to proceeding as the security settings change depending on varying factors. Please do whatever is requested by security at that time. 13. Some of the newer devices may be MRI compatible but, currently, the use of these devices is not widespread, so you likely will not be able to have an MRI. Please clarify this with your physician. If at any time, you feel lightheaded or dizzy/faint, stop what you are doing & lie down immediately. If you are driving, get to the side of the road quickly, turn your car off & call 911 on your cell phone. DO NOT continue to drive as this may cause an accident that seriously injures yourself &/or others. Call the office at [phone] for any questions or concerns. FE ROCHA MD 02/24/19 1807: Discharge Summary Brief Hospital Course Brief Hospital Course Pt. seen and examined. Agree with above METAL PATTERN MAKER note. CXR/interrogation are unremarkable. Supportive care. Wound care mgmt and arm restrictions discussed with daughter. Will f/u in the office in 1-2 weeks for a wound check. ROBERTA BRITTON APRN Feb 24, 2019 08:37 FE ROCHA MD Feb 24, 2019 18:07
[2019-02-24] MEDS ORDERED: MEMANTINE 10 MG TABLET. PO SCH (09:00)
[2019-02-24 10:53] VITALS: BP 154/66
--- NOTE | 2019-02-24 11:59 | RAD ---
Examination: PORTABLE CHEST 1V History: Pacemaker placement Comparison/Correlation: 02/05/2019 two-view chest x-ray exam Findings: Portable upright frontal view chest is obtained. Limited pulmonary inflation noted. Dual-lead left-sided pacemaker is present. No pneumothorax. Costophrenic angle blunting similar to the prior exam bilaterally is again seen. No definite consolidation. Impression: No focal infiltrate. No significant change. Electronically signed by: Antony Hauser MD (02/24/2019 11:56 AM) [facility]
--- NOTE | 2019-02-24 12:09 | NUR ---
SS following for discharge planning. SS reviewed pt chart. Pt is from home and is currently on room air. Home Healthcare orders received. SS met with pt and daughter in room to discuss home healthcare and discharge planning. Pt and pt's daughter agreeable to home healthcare and reported having no preference of company. SS discussed home healthcare options with pt and pt's daughter. Both reported that they had no preference. SS phoned and faxed discharge order and referral to [facility], ; fax [phone].
[2019-02-24 14:37] VITALS: BP 152/74
--- NOTE | 2019-02-24 14:37 | NUR ---
Wound Care: Wound care consult for left chest skin tear after pacemaker placement. See wound intervention. Wound cleanse, covered with therahoney, xeroform and foam, recommendation to change every 2-3 days. No other wounds noted. KALEB Vale informed of POC.
--- NOTE | 2019-02-24 15:54 | NUR ---
Discharge Note: EDMOND STONE [address] [place] [address] Discharge instructions and discharge home medications reviewed with Patient and a copy given. All questions have been answered and understanding verbalized. The following instructions and handouts were given: Pacemaker - care after Discontinued IV line Patient discharged to home with home heal via wheelchair
--- NOTE | 2019-03-02 17:05 | PDOC1 ---
History and Physical Visit Information Date of Admission: Feb 23, 2019 at 13:16 Source: Caregiver, Patient History of Present Illness History of Present Illness Late entry for 02/23/2019 88-year-old woman presenting for RV lead revision. She underwent a pacemaker proximally 2 weeks prior and interrogation in the office yesterday revealed RV lead dislodgment. Cardiac Risk Factors Cardiac Risk Factors: Hypertension Past Surgical History Past Surgical History: Pacemaker Allergies Allergies Allergies Coded Allergies Type Severity Reaction Last Updated Verified No Known Drug Allergies 06/27/17 No Social History Comments No alcohol, tobacco or illicit drug use. ROS Review of System No chest pain, dyspnea, orthopnea or PND. No syncope or palpitations. Physical Exam General: Alert, Oriented X3 HEENT: Atraumatic Lungs: Clear to auscultation Heart: Regular rate CHEST: Clear to auscultation, Chest wall tender noted Abdomen: Soft Extremities: No clubbing Skin: No rashes Neuro: Normal gait Labs Labs Labs reviewed without any signs of infection. VTE Prophylaxis Ordered VTE Prophylaxis Devices: No VTE Pharmacological Prophylaxi: No Assessment/Plan Assessment/Plan 1. 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 RV lead dislodgment Plan for RV lead repositioning. Discussed risks and benefits with the patient and family. FE ROCHA MD Mar 02, 2019 17:05
== END 2019-02-24 15:17 | disposition home or self-care (01) ==
LOC: CCL 10:54 → 2 NORTH 13:16
PROVIDERS: ADMIT Internal Medicine Cardiovascular Disease; ATTEND Internal Medicine Cardiovascular Disease
DX: T82.128A Displacement of other cardiac electronic device, initial encounter (principal); I44.30 Unspecified atrioventricular block; R55 Syncope and collapse; Y71.2 Prosthetic and other implants, materials and accessory cardiovascular devices associated with adverse incidents
CPT/HCPCS: 33215; 71045; 96365; 96368; 96375; 96376; G0378; G0379; J0690; J2250; J3010; J3490; J7050; 99152; 99153; J7030

== ENCOUNTER → 2021-09-10 | Outpatient (CLI) | payer MEDICARE ==
[~2021-09-10] MED LIST changes: -CALC500T13 PO; +CALC500T14 PO; -HEPARIN for IV BOLUS 10,000 UNIT/10 ML VIAL. ONE; -MEMA10TA20 PO; +MEMA10TA56 PO; -MIDAZOLAM HCL/PF 2 MG/2 ML VIAL. ONE; -MULT1TAB90 PO; +MULT1TAB92 PO; -NITROGLYCERIN 200 MCG/2 ML SYRINGE FOR CATH/VASC LAB. ONE; -VERAPAMIL 5 MG/2 ML VIAL. ONE; -fentaNYL PF VIAL 100 MCG/2 ML VIAL ONE
--- NOTE | 2021-09-11 12:10 | CARD ---
MR#: [id number] Date of Study: 09/10/2021 Ordering Physician: FE ROCHA, Referring Physician: FE ROCHA, Tech: Richa England [facility] APPROVED REPORT EXAM: Two-dimensional and M-mode echocardiogram with Doppler and color Doppler. Other Information Quality : GoodHR: 59bpm Rhythm : NSR INDICATION Cardiac pacemaker 2D DIMENSIONS RVDd2.8 (2.9-3.5cm)Left Atrium(2D)3.0 (1.6-4.0cm) IVSd1.2 (0.7-1.1cm)Aortic Root(2D)2.4 (2.0-3.7cm) LVDd4.1 (3.9-5.9cm)LVOT Diameter2.1 (1.8-2.4cm) PWd1.2 (0.7-1.1cm)LVDs2.8 (2.5-4.0cm) FS (%) 32.2 %SV45.6 ml LVEF(%)60.9 (>50%) Aortic Valve AoV Peak [place].121.1cm/Tiffany Peak GR.7.6mmHg LVOT Peak [place].89.7cm/sAVA (VMAX)2.48cm2 Mitral Valve MV E Sxdpuvjo84.7cm/sMV DECEL [id number] MV A Ppvhovhk40.6cm/sE/A Ratio0.7 Pulmonary Valve PV Peak Euvohbnu750.5cm/s Tricuspid Valve TR P. Qjghqxzl156tk/sRAP [id number] TR Peak Gr.27lgUsLCEY46zcUm Pulmonary Vein S1 Uptprlgg97.4cm/sD2 Mgjllnqk69.2cm/s PVa [id number] LEFT VENTRICLE The left ventricle is normal size. There is mild concentric left ventricular hypertrophy. The left ve ntricular ejection fraction is within the normal range. EF 55% No regional wall motion abnormalities noted. Tissue Doppler imaging reveals mild left ventricular diastolic dysfunction. No left ventricle thrombus noted on this study. There is no ventricular septal defect visualized. There is no left vent ricular aneurysm. There is no mass noted in the left ventricle. RIGHT VENTRICLE The right ventricle is normal size. There is normal right ventricular wall thickness. The right ventr icular systolic function is normal. There is a pacemaker lead noted in the RA/RV ATRIA The left atrium is mildly dilated. The right atrium size is normal. The interatrial septum is intact with no evidence for an atrial septal defect or patent foramen ovale as noted on 2-D or Doppler imagi ng. AORTIC VALVE The aortic valve is normal in structure and function. Doppler and Color Flow revealed trace to mild a ortic regurgitation. There is no aortic valvular stenosis. There is no aortic valvular vegetation. MITRAL VALVE The mitral valve is normal in structure and function. There is no evidence of mitral valve prolapse. There is no mitral valve stenosis. Doppler and Color Flow revealed mild mitral regurgitation. TRICUSPID VALVE The tricuspid valve is normal in structure and function. Doppler and Color Flow revealed mild tricusp id regurgitation. The pulmonary artery systolic pressure is estimated at 30-40 mmHg. There is no tric uspid valve prolapse or vegetation. There is no tricuspid valve stenosis. PULMONIC VALVE There is no pulmonic valvular regurgitation. There is no pulmonic valvular stenosis. GREAT VESSELS The aortic root is normal in size. The ascending aorta is normal in size. The pulmonary artery is nor mal. The IVC is normal in size and collapses >50% with inspiration. PERICARDIAL EFFUSION There is no pleural effusion. There is no evidence of significant pericardial effusion. Critical Notification Critical Value: No <Conclusion> The left ventricular ejection fraction is within the normal range. EF 55% No regional wall motion abnormalities noted. Doppler and Color Flow revealed mild tricuspid regurgitation. The pulmonary artery systolic pressure is estimated at 30-40 mmHg. There is a pacemaker lead noted in the RA/RV Signed by : Fe Rocha, Electronically Approved : 09/11/2021 12:09:24
== END ==
LOC: ECHO 10:23
PROVIDERS: ATTEND Internal Medicine Cardiovascular Disease
DX: I08.3 Combined rheumatic disorders of mitral, aortic and tricuspid valves (principal); Z95.0 Presence of cardiac pacemaker
CPT/HCPCS: 93306; C8929